=== PATIENT | female | born 1935 | race Caucasian/White ===

== ENCOUNTER 2018-04-04 16:59 | Emergency (ER) | payer MEDICARE ==
[2018-04-04] MEDS ORDERED: Atropine Sulfate 1 mg/10 ml Syringe ONE (17:14)
[2018-04-04] MEDS ORDERED: Lidocaine 1% PF 5 ML VIAL ONE (17:49)
[2018-04-04 18:29] LABS: #Basophils 0.1 thou/uL (0.0-0.2); #Neutrophils 8.8 thou/uL (1.40-6.50); %Basophils 0.7 % (0.0-1.0); %Eosinophils 0.2 % (0.0-10.0); %Lymphocytes 16.5 % (21.0-51.0); %Monocytes 8.1 % (0.0-10.0); %Neutrophils 74.5 % (42.0-75.0); Hemoglobin 8.8 g/dL (12.0-16.0); Mean Corpuscular HGB CONC 30.6 g/dL (32.0-36.0); Mean Corpuscular Hemoglobin 29.5 pg (27.0-31.0); Mean Corpuscular Volume 96.4 fL (78.0-98.0); Mean Platelet Volume 8.1 fL (7.4-10.4); Platelet Count 260 thou/uL (130-400); RBC Distribution Width 12.2 % (11.5-14.5); Red Blood Cell (RBC) Count 2.97 mill/uL (4.20-5.40); White Blood Cell (WBC) Count 11.8 thou/uL (4.8-10.8)
[2018-04-04] MEDS ORDERED: Calcium Chloride 1 GM/10 ML Abboject SYRINGE ONE (18:33)
[2018-04-04 18:57] LABS: Troponin I 0.019 ng/mL (< 0.028)
[2018-04-04 19:01] LABS: ALT (SGPT) 63 U/L (8-55); AST (SGOT) 139 U/L (5-34); Alkaline Phosphatase 178 U/L (40-150); Anion Gap 28 mmol/L (10-20); BUN (Urea Nitrogen) 28 mg/dL (9.8-20.1); Bilirubin, Total 0.7 mg/dL (0.2-1.2); CK (CPK) 85 U/L (29-168); Calc. Creatinine Clearance 0 mL/min (70-130); Carbon Dioxide 14 mmol/L (23-31); Chloride 98 mmol/L (98-107); Estimated GFR-MDRD 29; Globulin 3.7 g/dL (2.4-3.5); Potassium 5.8 mmol/L (3.5-5.1); Protein, Total 6.7 g/dL (6.0-8.3); Sodium 134 mmol/L (136-145)
[2018-04-04 19:05] LABS: Glucose 50 mg/dL (83-110)
[2018-04-04] MEDS ORDERED: Dextrose 50% Abboject 50 ML SYRINGE ONE (19:32)
[2018-04-04] MEDS ORDERED: Sodium Bicarb 50 MEQ/50 ML Abboject 8.4% SYRINGE ONE (19:32)
[2018-04-04] MEDS ORDERED: Ondansetron PF 4 MG/2 ML Vial IVP PRN (20:19)
[2018-04-04] MEDS ORDERED: Ondansetron ODT 4 MG TAB PO PRN (20:19)
[2018-04-04] MEDS ORDERED: Lorazepam 2 MG/ML VIAL SLOW IVP PRN (20:19)
[2018-04-04] MEDS ORDERED: Promethazine HCl 25 MG SUPP PR PRN (20:19)
[2018-04-04] MEDS ORDERED: Morphine 2 MG/ML SYRINGE SLOW IVP PRN (20:24)
--- NOTE | 2018-04-04 20:53 | RAD ---
CHEST ONE VIEW 04/04/18 HISTORY: Status post central line placement. COMPARISON: 04/01/18. FINDINGS: Portable supine chest radiograph demonstrates atherosclerosis of the aorta. Stable cardiac silhouette . Calcification of the mitral annulus is noted. Pulmonary vessels and hilum are normal. Costophrenic angles are unchanged. Minimal blunting of the left costophrenic angle is noted. There is no evidence of consolidation or mass. There has been interval placement of a right sided internal jugular central venous catheter with the distal tip in the right atrium. No pneumothorax on the supine projection. T here is diffuse bone demineralization. Stable sclerosis involving the left humerus. Impacted right pr oximal humerus fracture is also noted. IMPRESSION: Central venous catheter placement as above. No pneumothorax on this supine projection. POS: [facility]
== END 2018-04-04 20:08 | disposition short-term general hospital (02) ==
LOC: ERS 16:59
DX: R40.0 Somnolence (principal); S42.301A Unspecified fracture of shaft of humerus, right arm, initial encounter for closed fracture; E78.5 Hyperlipidemia, unspecified; E11.9 Type 2 diabetes mellitus without complications; I11.0 Hypertensive heart disease with heart failure; I50.9 Heart failure, unspecified; F32.9 Major depressive disorder, single episode, unspecified
CPT/HCPCS: 36430; 71045; 80053; 82550; 82553; 83605; 84484; 85025; 86850; 86900; 86901; 86920; 96361; 96374; 96375; 99285; P9016; J0461; J2001; J7620